=== PATIENT | male | born 1960 | race Caucasian/White ===

== ENCOUNTER 2019-03-03 11:16 | Inpatient (IN) | payer OTHER ==
[2019-03-03 12:32] LABS: Absolute Lymphocytes (CBC) 0.3 K/uL (0.7-4.9); Basophils % 0.7 % (0-1.3); Hematocrit 33.6 % (39.6-49.0); Lymphocytes % 29.5 % (15.3-44.8); MPV 10.1 fL (7.6-11.3); RBC Red Blood Cell Count 3.54 M/uL (4.33-5.43)
[2019-03-03 12:40] LABS: ALT/SGPT 104 U/L (12-78); AST/SGOT 68 U/L (15-37); Albumin 3.3 g/dL (3.4-5.0); Alkaline Phosphatase 52 U/L (45-117); BUN Blood Urea Nitrogen 15 mg/dL (7-18); Bicarbonate 32 mmol/L (21-32); Bilirubin Direct 0.2 mg/dL (0-0.2); Bilirubin Total 0.8 mg/dL (0.2-1.0); Glucose Level 94 mg/dL (74-106); Lipase 55 U/L (73-393); Potassium 4.4 mmol/L (3.5-5.1); Protein, Total 5.9 g/dL (6.4-8.2); Sodium Level 142 mmol/L (136-145)
[2019-03-03 12:52] LABS: Blood Morphology Comment NOT SEEN (NOT SEEN); Platelet Estimate DECR
--- NOTE | 2019-03-03 13:48 | RAD REPORT ---
EXAM DESCRIPTION: CT - Abdomen Pelvis W Contrast - 03/03/2019 1:11 pm CLINICAL HISTORY: ABD PAIN, right lower quadrant pain COMPARISON: None. TECHNIQUE: Biphasic, helical CT imaging of the abdomen and pelvis was performed following 100 ml non -ionic IV contrast. No oral contrast administered. All CT scans are performed using dose optimization technique as appropriate and may include automated exposure control or mA/KV adjustment according to patient size. FINDINGS: No suspicious findings in the lung bases. The liver, spleen, and pancreas show no suspicious findings. Small cyst present in the lateral inferi or right lobe of the liver. No biliary tree dilatation. No gallbladder dilatation. Gallstones can be occult on CT imaging. Renal function is slightly asymmetric appearing fractionally delayed on the right. An obstructing sto ne is not identified. Patient has known nonobstructing calculi. No ureteral or bladder mass as it is evident. Prostate gland and seminal vesicles are normal range. No pyelonephritis or acute parenchymal process. No bladder abnormalities. No adrenal abnormalities. No gastric dilatation or wall thickening. No dilated small bowel loops. A normal appendix is identifi able. Descending colon shows circumferential wall thickening. There is stranding in the adjacent fat. No free air or pneumatosis. No free fluid or abscess. Remainder the colon is without acute finding. No mass or bulky lymphadenopathy. Fat filled umbilical hernia present. Prominent bony degenerative changes are present. Postsurgical changes are present in the lower lumbar spine. IMPRESSION: Circumferential wall thickening of the ascending colon with adjacent inflammatory strand ing. Colitis and malignancy are both considerations. Typhlitis would be a consideration if the patien t has immune suppression issues. A normal appendix is identified. Slightly delayed or asymmetric function of the right kidney without obstructing calculus. An acute et iology for this asymmetry is not evident.
[2019-03-03] MEDS ORDERED: PIPER/TAZO/NS 3.375gm 3.375 GM/100 ML BAG ONE (14:07)
--- NOTE | 2019-03-03 14:22 | EDPHYS ---
Physician Documentation [facility] Name: Luciano Dias Age: 59 yrs Sex: Male : 1960 Arrival Date: 03/03/2019 Time: 11:19 Bed 25 Private MD: Jonatan Manjarrez ED Physician Antony Hart HPI: 03/03 12:08 This 59 yrs old Male presents to ER via Ambulatory with complaints of rn InQuicker - Appendicitis. 12:08 The patient presents with abdominal pain right lower quadrant. Onset: The rn symptoms/episode began/occurred 6 day(s) ago. The symptoms do not radiate. Associated signs and symptoms: Pertinent positives: anorexia, diarrhea, Pertinent negatives: fever, shortness of breath, testicular pain, vomiting, vomiting blood. The symptoms are described as crampy, sharp. Modifying factors: The symptoms are alleviated by nothing, the symptoms are aggravated by movement, touching the area. Severity of pain: At its worst the pain was moderate in the emergency department the pain is unchanged. The patient has not experienced similar symptoms in the past. The patient has been recently seen by a physician:. Reports recently seen by urgent care for blisters in mouth, given steroids, since then or for 5-6 days has been having intermittent RLQ pain, assoc with non-bloody diarrhea and decreased appetite. NOt getting worse but also not getting better. No fever. No trauma.. Historical: - Allergies: 11:58 No Known Allergies; aj1 - Home Meds: 11:58 Adderall XR Oral [Active]; Provigil oral oral [Active]; MS Contin Oral [Active]; Lyrica aj1 Oral [Active]; Flexeril Oral [Active]; - PMHx: 11:58 ADD/ADHD; aj1 - PSHx: 11:58 back surgery; Tonsillectomy; aj1 - Immunization history:: Flu vaccine is not up to date. - Social history:: Smoking status: Patient uses tobacco products, smokes one-half pack cigarettes per day. - Ebola Screening: : Patient denies travel to an Ebola-affected area in the 21 days before illness onset. - Family history:: not pertinent. - Hospitalizations: : No recent hospitalization is reported. ROS: 12:08 Constitutional: Negative for fever, chills, and weight loss, Eyes: Negative for injury, rn pain, redness, and discharge, Neck: Negative for injury, pain, and swelling, Cardiovascular: Negative for chest pain, palpitations, and edema, Respiratory: Negative for shortness of breath, cough, wheezing, and pleuritic chest pain, Abdomen/GI: Negative for nausea, vomiting, and constipation, Back: Negative for injury and pain, : Negative for injury, bleeding, discharge, and swelling, MS/Extremity: Negative for injury and deformity, Skin: Negative for injury, rash, and discoloration, Neuro: Negative for headache, weakness, numbness, tingling, and seizure. Exam: 12:08 Constitutional: This is a well developed, well nourished patient who is awake, alert, rn and in no acute distress. Ambulatory to room without difficulty or assistance. Head/Face: Normocephalic, atraumatic. Eyes: Pupils equal round and reactive to light, extra-ocular motions intact. Lids and lashes normal. Conjunctiva and sclera are non-icteric and not injected. Cornea within normal limits. Periorbital areas with no swelling, redness, or edema. Cardiovascular: Regular rate and rhythm. No pulse deficits. Respiratory: No increased work of breathing, no retractions or nasal flaring. Abdomen/GI: soft, mild RLQ tenderness, no rebound, no fluid wave. MS/ Extremity: Pulses equal, no cyanosis. Neurovascular intact. Full, normal range of motion. Equal circumference. Neuro: Awake and alert, GCS 15, oriented to person, place, time, and situation. Cranial nerves II-XII grossly intact. Motor strength 5/5 in all extremities. Sensory grossly intact. Cerebellar exam normal. Normal gait. Vital Signs: 11:58 BP 121 / 70; Pulse 71; Resp 18; Temp 97.7; Pulse Ox 98% on R/A; Weight 99.79 kg (R); aj1 Height 6 ft. 2 in. (187.96 cm) (R); Pain 7/10; 15:08 BP 108 / 72; Pulse 62; Resp 18; Pulse Ox 100% on R/A; mg2 16:20 BP 115 / 78; Pulse 68; Resp 18; Temp 98; Pulse Ox 100% on R/A; mg2 11:58 Body Mass Index 28.25 (99.79 kg, 187.96 cm) aj MDM: 12:00 Patient medically screened. rn 14:19 Differential diagnosis: appendicitis, diverticulitis, non-specific abd pain, rn pancreatitis, Ureterolithiasis, colitis, dehydration. Data reviewed: vital signs, nurses notes, lab test result(s), radiologic studies, CT scan, and as a result, I will admit patient. Counseling: I had a detailed discussion with the patient and/or guardian regarding: the historical points, exam findings, and any diagnostic results supporting the discharge/admit diagnosis, lab results, radiology results, the need for further work-up and treatment in the hospital. Response to treatment: the patient's symptoms have mildly improved after treatment, and as a result, I will admit patient. Admission orders: after a detailed discussion of the patient's condition and case, the admit orders are written by me. ED course: Pt with leukopenia/neutropenia as well as thrombocytopenia, in conjunction with colitis or possible typhlitis. Will admit for IV abx to Dr. He. Pt is receiving shots for arthritis that he just started, is not sure of name, is going to get us name of medication.. 03/03 12:06 Order name: Basic Metabolic Panel; Complete Time: 13:14 rn 03/03 12:06 Order name: CBC with Diff; Complete Time: 13:14 rn 03/03 12:06 Order name: Creatinine for Radiology; Complete Time: 13:14 rn 03/03 12:06 Order name: Hepatic Function; Complete Time: 13:14 rn 03/03 12:06 Order name: Lipase; Complete Time: 13:14 rn 03/03 12:06 Order name: Urine Microscopic Only rn 03/03 12:06 Order name: IV Saline Lock; Complete Time: 12:30 rn 03/03 12:06 Order name: Labs collected and sent; Complete Time: 12:30 rn 03/03 12:06 Order name: CT Abd/Pelvis - IV Contrast Only; Complete Time: 13:56 rn 03/03 12:06 Order name: Urine Dipstick-Ancillary (obtain specimen); Complete Time: 16:14 rn 03/03 12:52 Order name: Manual Differential; Complete Time: 13:14 EDMS 03/03 15:53 Order name: Urine Dipstick--Ancillary (enter results) 03/03 16:25 Order name: Urine Dipstick-Ancillary EDMS Administered Medications: 14:16 Drug: Zosyn 3.375 grams Route: IVPB; Infused Over: 60 mins; Site: right forearm; mg2 16:08 Follow up: Response: No adverse reaction; IV Status: Completed infusion mg2 Disposition: 03/03/19 14:21 Hospitalization ordered by Mandy He for Inpatient Admission. Preliminary diagnosis are Colitis, Neutropenia, unspecified, Thrombocytopenia, unspecified. - Bed requested for Telemetry/MedSurg (Inpatient). - Status is Inpatient Admission. mg2 - Condition is Stable. - Problem is new. - Symptoms have improved. UTI on Admission? No Signatures: Dispatcher [employer] EDMS Xochitl Shaikh RN RN aj1 Antony Hart MD MD rn Aguilar, Jose, RN RN ja1 Will Bean RN RN mg2 Corrections: (The following items were deleted from the chart) 15:29 14:21 Hospitalization Ordered by Mandy He MD for Inpatient Admission. Preliminary ja1 diagnosis is Colitis; Neutropenia, unspecified; Thrombocytopenia, unspecified. Bed requested for Telemetry/MedSurg (Inpatient). Status is Inpatient Admission. Condition is Stable. Problem is new. Symptoms have improved. UTI on Admission? No. rn 16:27 15:29 03/03/2019 14:21 Hospitalization Ordered by Mandy He MD for Inpatient mg2 Admission. Preliminary diagnosis is Colitis; Neutropenia, unspecified; Thrombocytopenia, unspecified. Bed requested for Telemetry/MedSurg (Inpatient). Status is Inpatient Admission. Condition is Stable. Problem is new. Symptoms have improved. UTI on Admission? No. ja1
--- NOTE | 2019-03-03 14:22 | ER ---
Nurse's Notes [facility] Name: Luciano Dias Age: 59 yrs Sex: Male : 1960 Arrival Date: 03/03/2019 Time: 11:19 Bed 25 Private MD: Jonatan Manjarrez Diagnosis: Colitis;Neutropenia, unspecified;Thrombocytopenia, unspecified Presentation: 03/03 11:54 Presenting complaint: Patient states: RLQ abdominal pain since Monday, reports that aj1 his pain is worse when he bends over. Patient also reports poor appetite and diarrhea. Reports nausea, denies vomiting, denies fever. Transition of care: patient was not received from another setting of care. Onset of symptoms was 2018. Risk Assessment: Do you want to hurt yourself or someone else? Patient reports no desire to harm self or others. Initial Sepsis Screen: Does the patient meet any 2 criteria? No. Patient's initial sepsis screen is negative. Does the patient have a suspected source of infection? Yes: Acute abdominal pain. Care prior to arrival: None. 11:54 Method Of Arrival: Ambulatory aj 11:54 Acuity: YANELIS 3 aj1 Triage Assessment: 11:58 General: Appears in no apparent distress. uncomfortable, Behavior is calm, cooperative, aj1 appropriate for age. Pain: Complains of pain in right lower quadrant Pain currently is 7 out of 10 on a pain scale. Neuro: Level of Consciousness is awake, alert, obeys commands. Cardiovascular: Patient's skin is warm and dry. Respiratory: Airway is patent Respiratory effort is even, unlabored, Respiratory pattern is regular, symmetrical. GI: Reports lower abdominal pain. Historical: - Allergies: 11:58 No Known Allergies; aj1 - Home Meds: 11:58 Adderall XR Oral [Active]; Provigil oral oral [Active]; MS Contin Oral [Active]; Lyrica aj1 Oral [Active]; Flexeril Oral [Active]; - PMHx: 11:58 ADD/ADHD; aj1 - PSHx: 11:58 back surgery; Tonsillectomy; aj1 - Immunization history:: Flu vaccine is not up to date. - Social history:: Smoking status: Patient uses tobacco products, smokes one-half pack cigarettes per day. - Ebola Screening: : Patient denies travel to an Ebola-affected area in the 21 days before illness onset. - Family history:: not pertinent. - Hospitalizations: : No recent hospitalization is reported. Screenin:03 Abuse screen: Denies threats or abuse. Denies injuries from another. Nutritional mg2 screening: No deficits noted. Tuberculosis screening: No symptoms or risk factors identified. 12:06 Fall Risk None identified. mg2 Assessment: 12:04 General: Appears in no apparent distress. comfortable, Behavior is calm, cooperative. mg2 Pain: Complains of pain in right lower quadrant Pain does not radiate. Quality of pain is described as aching, Pain began gradually, since monday Is intermittent. Neuro: Level of Consciousness is awake, alert, obeys commands, Oriented to person, place, time, situation. Cardiovascular: Capillary refill < 3 seconds Patient's skin is warm and dry. Respiratory: Airway is patent Respiratory effort is even, unlabored, Respiratory pattern is regular, symmetrical. GI: Reports lower abdominal pain, nausea. EENT: No signs and/or symptoms were reported regarding the EENT system. Derm: Skin is intact, is healthy with good turgor, Skin is pink, warm \T\ dry. normal. Musculoskeletal: Circulation, motion, and sensation intact. Capillary refill < 3 seconds. 13:05 Reassessment: patient sent to ct scan via wheelchair. mg2 14:30 Reassessment: provider informed the patient about the plan for hospitalization and he mg2 agreed. 15:48 Reassessment: i tried to call for report and said they will call back to receive the mg2 report. Vital Signs: 11:58 BP 121 / 70; Pulse 71; Resp 18; Temp 97.7; Pulse Ox 98% on R/A; Weight 99.79 kg (R); aj1 Height 6 ft. 2 in. (187.96 cm) (R); Pain 7/10; 15:08 BP 108 / 72; Pulse 62; Resp 18; Pulse Ox 100% on R/A; mg2 16:20 BP 115 / 78; Pulse 68; Resp 18; Temp 98; Pulse Ox 100% on R/A; mg2 11:58 Body Mass Index 28.25 (99.79 kg, 187.96 cm) aj1 ED Course: 11:19 Patient arrived in ED. ag5 11:20 Jonatan Manjarrez MD is Private Physician. ag5 11:56 Triage completed. aj1 11:58 Arm band placed on Patient placed in an exam room. aj1 12:00 Antony Hart MD is Attending Physician. rn 12:01 Will Bean, FILI is Primary Nurse. mg2 12:06 Patient has correct armband on for positive identification. mg2 12:10 Radiology exam delayed due to lab results not completed at this time. (BUN/Creatinine). mw3 13:05 No provider procedures requiring assistance completed. Inserted saline lock: 20 gauge mg2 in right forearm, using aseptic technique. Blood collected. 13:10 CT completed. Patient tolerated procedure well. Patient moved back from CT. bq 13:11 CT Abd/Pelvis - IV Contrast Only In Process Unspecified. EDMS 14:20 Mandy He MD is Hospitalizing Provider. rn 16:20 Patient admitted, IV remains in place. mg2 Administered Medications: 14:16 Drug: Zosyn 3.375 grams Route: IVPB; Infused Over: 60 mins; Site: right forearm; mg2 16:08 Follow up: Response: No adverse reaction; IV Status: Completed infusion mg2 Outcome: 14:21 Decision to Hospitalize by Provider. rn 16:20 Admitted to Tele accompanied by tech, via wheelchair, room 422, with chart, Report mg2 called to FILI Marshall 16:20 Condition: stable 16:20 Instructed on the need for admit, Demonstrated understanding of instructions. 16:27 Patient left the ED. mg2 Signatures: Dispatcher [employer] EDMS Xochitl Shaikh RN RN aj1 Sheree Zuñiga bq Antony Hart MD MD rn Gardose, Michele, FILI PENN mg2 Marci Dennis mw3 Sol Martinez 5
[2019-03-03 16:24] LABS: Urine Bacteria <20 /HPF (NONE SEEN); Urine Culture Reflex Order REFLEXED; Urine RBC NONE SEEN /HPF (NONE SEEN)
[2019-03-03 16:25] LABS: Urine Blood TRACE (NEG); Urine Glucose NEGATIVE (NEG); Urine Protein NEGATIVE (NEG); Urine pH 5.5 (5.0-7.0)
[2019-03-03 16:36] VITALS: BMI 28.2
[2019-03-03] MEDS: NA CHLORIDE 0.9% 1,000 ML IV SCH (16:53)
--- NOTE | 2019-03-03 18:01 | P.HP ---
Certification for Inpatient Patient admitted to: Inpatient With expected LOS: >2 Midnights Practitioner: I am a practitioner with admitting privileges, knowledge of patient current condition, hospital course, and medical plan of care. Services: Services provided to patient in accordance with Admission requirements found in Title 42 Section 412.3 of the Code of Federal Regulations Patient History Date of Service: 03/03/19 Primary Care Provider: Dr. Manjarrez (we are covering) Reason for admission: Right lower quadrant abdominal pain History of Present Illness: This is a 59-year-old male who has been fairly healthy presented to the emergency room with complaints of right sided, lower quadrant abdominal pain. Per patient, he has had this right lower quadrant pain for the past 5 or 6 days. ADD improve slightly but since 5-6 days that has remained at the level at. He describes it as a dull achy pain which is worsened with bending and increasing abdominal pressure. He associates this pain with non-bloody diarrhea and nausea. Patient states that he has not had a bowel movement today though. He denies any fevers, chills, vomiting, recent travels, eating anything out of the ordinary, recent sick contacts. Of note, patient has recently seen a assistant shift supervisor who started him on a new medication for his arthritis. He was started on Sarilumab recently. Since the pain was not getting any better, he presented to the emergency room. In the ER, blood pressure was 121/70, heart rate is 71, respirations of 18, afebrile at 97.9, satting 90% on room air with a BMI of 20.25. Labs were remarkable for a WBC count of 1, platelets of 71. CT of the abdomen showed Circumferential wall thickening of the ascending colon with adjacent inflammatory stranding. Colitis and malignancy are both considerations. Typhlitis would be a consideration if the patient has immune suppression issues. A normal appendix is identified. At the time of my exam, patient was alert oriented x3, in no acute distress, hemodynamically stable. Allergies No Known Allergies Allergy (Verified 03/03/19 15:41) Home medications list reviewed: Yes Home Medications: Hydroxychloroquine [Plaquenil*] 1 tab PO BID 03/03/19 Methocarbamol [Robaxin*] 1 tab PO TID 03/03/19 Morphine *Extended Release* [MS Contin*] 30 mg PO TID 03/03/19 Pregabalin [Lyrica*] 1 tab PO TID 03/03/19 - Past Medical/Surgical History Has patient received pneumonia vaccine in the past: No Diabetic: No -: back problem -: back discectomy, laminectomy, effusion - Family History Father -: Lung disease Notes: copd - Social History Smoking Status: Current every day smoker Alcohol use: No CD- Drugs: No Caffeine use: Yes Place of Residence: Home Review of Systems 10-point ROS is otherwise unremarkable Physical Examination - Vital Signs Temperature: 98 F Blood Pressure: 115/78 Pulse: 68 Respirations: 18 - Physical Exam General: Alert, In no apparent distress, Oriented x3 HEENT: Atraumatic, PERRLA, Mucous membr. moist/pink, EOMI, Sclerae nonicteric Neck: Supple, 2+ carotid pulse no bruit, No LAD, Without JVD or thyroid abnormality Respiratory: Clear to auscultation bilaterally, Normal air movement Cardiovascular: Regular rate/rhythm, Normal S1 S2 Gastrointestinal: Normal bowel sounds, No tenderness Musculoskeletal: No tenderness Integumentary: No rashes Neurological: Normal gait, Normal speech, Normal strength at 5/5 x4 extr, Normal tone, Normal affect Lymphatics: No axilla or inguinal lymphadenopathy - Studies Laboratory Data (last 24 hrs) 03/03/19 12:15: Creatinine 0.82 03/03/19 12:15: WBC 1.0 L*, Hgb 11.9 L, Hct 33.6 L, Plt Count 71 L 03/03/19 12:15: Sodium 142, Potassium 4.4, BUN 15, Creatinine 0.85, Glucose 94, Total Bilirubin 0.8, AST 68 H, ALT 104 H, Alkaline Phosphatase 52, Lipase 55 L Assessment and Plan - Problems (Diagnosis) (1) Right lower quadrant abdominal pain Current Visit: Yes Status: Acute (2) Abnormal abdominal CT scan Current Visit: Yes Status: Acute (3) Neutropenia Current Visit: Yes Status: Acute Qualifiers: Neutropenia type: other drug-induced Qualified Code(s): D70.2 - Other drug- induced agranulocytosis (4) Thrombocytopenia Current Visit: Yes Status: Acute - Plan -Admit patient to the floor with tele -reverse isolation for neutropenia -neutropenia and thrombocytopenia likely secondary to Sarilumab -abnormal CT findings of colonic wall thickening, typhilitis, colitis versus malignancy: This is likely secondary to colitis, probably from Sarilumab. -Differential diagnosis for above symptoms: C. diff (less likely, as no diarrhea today), Norovirus, ischemic colitis(less likely, as no other risk factors other than smoking), [place]'s -send stool sample for C. diff testing and GI panel -will cover patient for cough colitis/typhlitis with broad-spectrum antibiotics with Zosyn. -bowel rest, NPO -IV fluids -monitor labs, vitals Signs -patient will likely need colonoscopy outpatient in 4-6 weeks DVT prophylaxis: Lovenox GI prophylaxis: None Diet: NPO Disposition: Pending symptomatic improvement and further workup. - Advance Directives Does patient have a Living Will: No Does patient have a Durable POA for Healthcare: No
[2019-03-03] MEDS: TRAMADOL HCL 50 MG TAB PO PRN (20:12)
[2019-03-03] MEDS: MORPHINE 2 MG/ML SYR IV PRN (22:10)
[2019-03-03] MEDS: LORAZEPAM 1 MG TABLET PO SCH (23:14)
[2019-03-04 04:24] LABS: Absolute Lymphocytes (CBC) 0.3 K/uL (0.7-4.9); Basophils % 0.8 % (0-1.3); Hematocrit 28.1 % (39.6-49.0); Lymphocytes % 34.1 % (15.3-44.8); MPV 9.7 fL (7.6-11.3); RBC Red Blood Cell Count 2.98 M/uL (4.33-5.43)
[2019-03-04] MEDS: MORPHINE 2 MG/ML SYR IV PRN ×3 (04:25→18:08)
[2019-03-04] MEDS: ONDANSETRON 4 MG/2 ML VIAL IV PRN ×2 (04:25→21:07)
[2019-03-04 04:37] LABS: ALT/SGPT 103 U/L (12-78); AST/SGOT 69 U/L (15-37); Albumin 2.8 g/dL (3.4-5.0); Alkaline Phosphatase 42 U/L (45-117); BUN Blood Urea Nitrogen 16 mg/dL (7-18); Bicarbonate 30 mmol/L (21-32); Bilirubin Total 0.8 mg/dL (0.2-1.0); Glucose Level 86 mg/dL (74-106); Magnesium 1.6 mg/dL (1.8-2.4); Phosphorus 2.6 mg/dL (2.5-4.9); Potassium 3.8 mmol/L (3.5-5.1); Protein, Total 4.9 g/dL (6.4-8.2); Sodium Level 143 mmol/L (136-145)
[2019-03-04] MEDS ORDERED: KCL 20 MEQ/100 mL IVPB 20 MEQ/100 ML BAG IV SCH (08:00)
[2019-03-04] MEDS: TRAMADOL HCL 50 MG TAB PO PRN ×2 (08:50→21:07)
[2019-03-04] MEDS: LORAZEPAM 1 MG TABLET PO SCH ×3 (08:52→23:40)
[2019-03-04] MEDS ORDERED: MAGNESIUM SULFATE 1 gm IVPB 1 GM/100 ML BAG IV ONE (09:00)
[2019-03-04] MEDS: NA CHLORIDE 0.9% 1,000 ML IV SCH (17:06)
--- NOTE | 2019-03-04 18:36 | P.PN ---
Subjective Date of Service: 03/04/19 Primary Care Provider: Dr. Manjarrez (we are covering) Chief Complaint: Right lower quadrant abdominal pain Subjective: No new changes Patient seen and examined at bedside. No family at bedside. Chart reviewed and case discussed with nursing staff. Review of Systems 10-point ROS is otherwise unremarkable Physical Examination - Vital Signs Temperature: 98.6 F Blood Pressure: 118/64 Pulse: 79 Respirations: 16 Pulse Ox (%): 97 - Physical Exam General: Alert, In no apparent distress HEENT: Atraumatic, PERRLA, EOMI Neck: Supple, JVD not distended Respiratory: Clear to auscultation bilaterally, Normal air movement Cardiovascular: Regular rate/rhythm, Normal S1 S2 Gastrointestinal: Normal bowel sounds, No tenderness Musculoskeletal: No tenderness Integumentary: No rashes Neurological: Normal speech, Normal tone, Normal affect Lymphatics: No axilla or inguinal lymphadenopathy Assessment And Plan - Current Problems (Diagnosis) (1) Right lower quadrant abdominal pain Current Visit: Yes Status: Acute (2) Abnormal abdominal CT scan Current Visit: Yes Status: Acute (3) Neutropenia Current Visit: Yes Status: Acute Qualifiers: Neutropenia type: other drug-induced Qualified Code(s): D70.2 - Other drug- induced agranulocytosis (4) Thrombocytopenia Current Visit: Yes Status: Acute - Plan -Admit patient to the floor with tele -continue reverse isolation for neutropenia -neutropenia and thrombocytopenia likely secondary to Sarilumab -abnormal CT findings of colonic wall thickening, typhilitis, colitis versus malignancy: This is likely secondary to colitis, probably from Sarilumab. -Differential diagnosis for above symptoms: C. diff (less likely, as no diarrhea today), Norovirus, ischemic colitis(less likely, as no other risk factors other than smoking), [place]'s -C. diff testing and GI panel pending -will cover patient for colitis/typhlitis with broad-spectrum antibiotics with cefepime and Flagyl -prophylactic treatment for C. diff with Flagyl -bowel rest, NPO -IV fluids -monitor labs, vitals Signs -patient will likely need colonoscopy outpatient in 4-6 weeks -if neutropenia continues to worsen, will discuss case with Oncology DVT prophylaxis: Lovenox GI prophylaxis: None Diet: NPO Disposition: Pending symptomatic improvement and further workup.
[2019-03-04] MEDS: PREGABALIN 75 MG CAP PO SCH (20:47)
[2019-03-04] MEDS: CEFEPIME/SWI 2gm 2 GM/20 ML SYR IV SCH (20:47)
[2019-03-04] MEDS: TEMAZEPAM 15 MG CAP PO SCH (20:48)
[2019-03-04] MEDS: [UNRECOGNIZED DRUG - OTHER] PO SCH (21:00)
[2019-03-04] MEDS: DEXTROAMPHETAMINE PO SCH (21:00)
[2019-03-04] MEDS ORDERED: CEFEPIME 2 GM VIAL IV SCH (21:00)
[2019-03-04] MEDS: AMPHETAMINE PO SCH (21:00)
[2019-03-04] MEDS: ARIPiprazole 5 MG TAB PO SCH (21:07)
[2019-03-05] MEDS: METRONIDAZOLE 500mg IVPB 500 MG/100 ML BAG IV SCH ×3 (01:44→16:51)
[2019-03-05] MEDS: ONDANSETRON 4 MG/2 ML VIAL IV PRN (01:46)
[2019-03-05] MEDS: MORPHINE 2 MG/ML SYR IV PRN ×3 (01:46→16:54)
[2019-03-05 04:34] LABS: Absolute Lymphocytes (CBC) 0.6 K/uL (0.7-4.9); Basophils % 1.5 % (0-1.3); Hematocrit 27.7 % (39.6-49.0); Lymphocytes % 48.2 % (15.3-44.8); MPV 9.6 fL (7.6-11.3); RBC Red Blood Cell Count 2.95 M/uL (4.33-5.43)
[2019-03-05 04:44] LABS: ALT/SGPT 102 U/L (12-78); AST/SGOT 62 U/L (15-37); Albumin 2.7 g/dL (3.4-5.0); Alkaline Phosphatase 40 U/L (45-117); BUN Blood Urea Nitrogen 15 mg/dL (7-18); Bicarbonate 29 mmol/L (21-32); Bilirubin Total 0.6 mg/dL (0.2-1.0); Glucose Level 78 mg/dL (74-106); Potassium 3.8 mmol/L (3.5-5.1); Protein, Total 4.8 g/dL (6.4-8.2); Sodium Level 144 mmol/L (136-145)
[2019-03-05 05:23] LABS: Magnesium 1.5 mg/dL (1.8-2.4)
[2019-03-05] MEDS ORDERED: MAGNESIUM SULFATE 1 gm IVPB 1 GM/100 ML BAG IV ONE (06:00)
[2019-03-05] MEDS ORDERED: KCL 20 MEQ/100 mL IVPB 20 MEQ/100 ML BAG IV SCH (06:00)
[2019-03-05] MEDS ORDERED: Magnesium Sulfate 2gm IVPB 2 G/50 ML BAG IV ONE (06:00)
[2019-03-05] MEDS: PREGABALIN 75 MG CAP PO SCH ×3 (08:53→21:43)
[2019-03-05] MEDS: LORAZEPAM 1 MG TABLET PO SCH ×3 (08:53→21:44)
[2019-03-05] MEDS: DULOXETINE 30 MG CAP PO SCH (08:53)
[2019-03-05] MEDS: [UNRECOGNIZED DRUG - OTHER] PO SCH ×2 (09:00→21:00)
[2019-03-05] MEDS: AMPHETAMINE PO SCH ×2 (09:00→21:00)
[2019-03-05] MEDS: DEXTROAMPHETAMINE PO SCH ×2 (09:00→21:00)
[2019-03-05] MEDS ORDERED: HOME MED 1 EA UNK (Duloxetine Hcl [Cymbalta] 1 TAB) PO SCH (09:00)
[2019-03-05] MEDS: CEFEPIME/SWI 2gm 2 GM/20 ML SYR IV SCH ×2 (10:38→21:43)
[2019-03-05] MEDS: ARIPiprazole 5 MG TAB PO SCH (12:40)
[2019-03-05 13:05] LABS: C.diff Antigen/Toxin Ag neg : Tox neg (NEG : NEG)
[2019-03-05] MEDS: TRAMADOL HCL 50 MG TAB PO PRN (13:09)
[2019-03-05] MEDS: NA CHLORIDE 0.9% 1,000 ML IV SCH (13:19)
--- NOTE | 2019-03-05 15:34 | P.PN ---
Subjective Date of Service: 03/05/19 Primary Care Provider: Dr. Manjarrez (we are covering) Chief Complaint: Right lower quadrant abdominal pain Subjective: Improving Patient seen and examined at bedside. No family at bedside. Chart reviewed and case discussed with nursing staff. No complaints this morning Review of Systems 10-point ROS is otherwise unremarkable Physical Examination - Vital Signs Temperature: 99.1 F Blood Pressure: 111/58 Pulse: 64 Respirations: 16 Pulse Ox (%): 97 - Physical Exam General: Alert, In no apparent distress, Oriented x3, Other (Week) HEENT: Atraumatic, PERRLA, EOMI Neck: Supple, JVD not distended Respiratory: Clear to auscultation bilaterally, Normal air movement Cardiovascular: Regular rate/rhythm, Normal S1 S2 Gastrointestinal: Normal bowel sounds, No tenderness Musculoskeletal: No tenderness Integumentary: No rashes Neurological: Normal speech, Normal tone, Normal affect Lymphatics: No axilla or inguinal lymphadenopathy - Studies Microbiology Data (last 24 hrs): 03/03/19 14:50 Clean Catch Urine [place] Count - Final 03/03/19 14:50 Clean Catch Urine - Final No growth. 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 -Differential diagnosis for above symptoms: Neutropenic enterocolitis, C. diff (less likely, as no diarrhea today), Norovirus, ischemic colitis(less likely, as no other risk factors other than smoking), [place]'s -C. diff negative -will cover patient for colitis/typhlitis with broad-spectrum antibiotics with cefepime and Flagyl -start clear liquid diet -IV fluids -will Dc once tolerating p.o. -monitor labs, vitals Signs -patient will likely need colonoscopy outpatient in 4-6 weeks -if neutropenia continues to worsen, will discuss case with Oncology DVT prophylaxis: Lovenox GI prophylaxis: None Diet: Clear liquid diet Disposition: Pending symptomatic improvement
[2019-03-05] MEDS: TEMAZEPAM 15 MG CAP PO SCH (21:44)
[2019-03-05] MEDS: ENSURE CLEAR 200 ML CAN PO SCH (21:44)
[2019-03-05] MEDS: NYSTATIN 500,000 UNIT/5 ML UDC PO SCH (21:44)
[2019-03-05] MEDS ORDERED: ACETAMINOPHEN 325 MG TABLET ONE (21:47)
[2019-03-05] MEDS: ACETAMINOPHEN 500 MG TAB PO PRN (21:49)
[2019-03-06] MEDS: METRONIDAZOLE 500mg IVPB 500 MG/100 ML BAG IV SCH ×2 (00:03→08:52)
[2019-03-06] MEDS: NA CHLORIDE 0.9% 1,000 ML IV SCH ×5 (00:03→21:52)
[2019-03-06 04:43] LABS: Absolute Lymphocytes (CBC) 0.5 K/uL (0.7-4.9); Basophils % 1.8 % (0-1.3); Hematocrit 28.8 % (39.6-49.0); Lymphocytes % 42.9 % (15.3-44.8); MPV 9.9 fL (7.6-11.3); RBC Red Blood Cell Count 3.03 M/uL (4.33-5.43)
[2019-03-06 05:09] LABS: ALT/SGPT 112 U/L (12-78); AST/SGOT 57 U/L (15-37); Albumin 2.7 g/dL (3.4-5.0); Alkaline Phosphatase 41 U/L (45-117); BUN Blood Urea Nitrogen 10 mg/dL (7-18); Bicarbonate 29 mmol/L (21-32); Bilirubin Total 0.6 mg/dL (0.2-1.0); Glucose Level 90 mg/dL (74-106); Magnesium 1.9 mg/dL (1.8-2.4); Potassium 3.5 mmol/L (3.5-5.1); Protein, Total 4.9 g/dL (6.4-8.2); Sodium Level 144 mmol/L (136-145)
[2019-03-06] MEDS ORDERED: POTASSIUM 25 MEQ EFFERV TAB PO ONE (07:29)
[2019-03-06] MEDS: PREGABALIN 75 MG CAP PO SCH ×2 (08:53→14:00)
[2019-03-06] MEDS: NYSTATIN 500,000 UNIT/5 ML UDC PO SCH ×2 (08:53→21:50)
[2019-03-06] MEDS: LORAZEPAM 1 MG TABLET PO SCH ×3 (08:54→21:50)
[2019-03-06] MEDS: ARIPiprazole 5 MG TAB PO SCH (08:54)
[2019-03-06] MEDS: DULOXETINE 30 MG CAP PO SCH (08:54)
[2019-03-06] MEDS: AMPHETAMINE PO SCH ×2 (08:55→21:00)
[2019-03-06] MEDS: DEXTROAMPHETAMINE PO SCH ×2 (08:55→21:00)
[2019-03-06] MEDS: [UNRECOGNIZED DRUG - OTHER] PO SCH ×2 (08:55→21:00)
[2019-03-06] MEDS: ENSURE CLEAR 200 ML CAN PO SCH ×2 (08:56→21:51)
[2019-03-06] MEDS: MORPHINE 2 MG/ML SYR IV PRN (09:00)
[2019-03-06] MEDS: CEFEPIME/SWI 2gm 2 GM/20 ML SYR IV SCH (10:05)
[2019-03-06] MEDS: PREGABALIN 150 MG CAP PO SCH (15:33)
--- NOTE | 2019-03-06 16:35 | P.PN ---
Subjective Date of Service: 03/06/19 Primary Care Provider: Dr. Manjarrez (we are covering) Chief Complaint: Right lower quadrant abdominal pain Subjective: Improving Patient seen and examined at bedside. No family at bedside. Chart reviewed and case discussed with nursing staff. No complaints this morning Diarrhea improved Review of Systems 10-point ROS is otherwise unremarkable Physical Examination - Vital Signs Temperature: 98.4 F Blood Pressure: 119/80 Pulse: 63 Respirations: 16 Pulse Ox (%): 98 - Physical Exam General: Alert, In no apparent distress, Oriented x3, Other (Elderly) HEENT: Atraumatic, PERRLA, EOMI Neck: Supple, JVD not distended Respiratory: Clear to auscultation bilaterally, Normal air movement Cardiovascular: Regular rate/rhythm, Normal S1 S2 Gastrointestinal: Normal bowel sounds, No tenderness Musculoskeletal: No tenderness Integumentary: No rashes Neurological: Normal speech, Normal tone, Normal affect Lymphatics: No axilla or inguinal lymphadenopathy Assessment And Plan - Current Problems (Diagnosis) (1) Right lower quadrant abdominal pain Current Visit: Yes Status: Acute (2) Abnormal abdominal CT scan Current Visit: Yes Status: Acute (3) Neutropenia Current Visit: Yes Status: Acute Qualifiers: Neutropenia type: other drug-induced Qualified Code(s): 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 -Differential diagnosis for above symptoms: Neutropenic enterocolitis, C. diff (less likely, as no diarrhea today), Norovirus, ischemic colitis(less likely, as no other risk factors other than smoking), [place]'s -C. diff negative -will cover patient for colitis/typhlitis with broad-spectrum antibiotics with cefepime and Flagyl -start clear liquid diet -IV fluids -will Dc once tolerating p.o. -monitor labs, vitals Signs -patient will likely need colonoscopy outpatient in 4-6 weeks -if neutropenia continues to worsen, will discuss case with Oncology DVT prophylaxis: Lovenox GI prophylaxis: None Diet: Clear liquid diet Disposition: Pending symptomatic improvement
[2019-03-06] MEDS: PIPER/TAZO/NS 3.375gm 3.375 GM/100 ML BAG IV SCH (17:00)
[2019-03-06] MEDS: TEMAZEPAM 15 MG CAP PO SCH (21:50)
[2019-03-06] MEDS: TRAMADOL HCL 50 MG TAB PO PRN (21:50)
[2019-03-07] MEDS: NA CHLORIDE 0.9% 1,000 ML IV SCH ×3 (00:23→16:07)
[2019-03-07] MEDS: PIPER/TAZO/NS 3.375gm 3.375 GM/100 ML BAG IV SCH ×3 (00:50→16:07)
[2019-03-07] MEDS: ACETAMINOPHEN 500 MG TAB PO PRN (02:45)
[2019-03-07] MEDS: TRAMADOL HCL 50 MG TAB PO PRN ×2 (05:40→21:05)
[2019-03-07 06:10] LABS: BUN Blood Urea Nitrogen 7 mg/dL (7-18); Bicarbonate 27 mmol/L (21-32); Glucose Level 88 mg/dL (74-106); Potassium 3.4 mmol/L (3.5-5.1); Sodium Level 146 mmol/L (136-145)
[2019-03-07] MEDS: DULOXETINE 30 MG CAP PO SCH (08:52)
[2019-03-07] MEDS: ARIPiprazole 5 MG TAB PO SCH (08:53)
[2019-03-07] MEDS: LORAZEPAM 1 MG TABLET PO SCH ×2 (08:54→13:40)
[2019-03-07] MEDS: PREGABALIN 150 MG CAP PO SCH ×3 (08:54→21:04)
[2019-03-07] MEDS: NYSTATIN 500,000 UNIT/5 ML UDC PO SCH ×2 (08:54→21:05)
[2019-03-07] MEDS: ENSURE CLEAR 200 ML CAN PO SCH ×2 (08:55→21:04)
[2019-03-07] MEDS: AMPHETAMINE PO SCH ×2 (08:57→21:00)
[2019-03-07] MEDS: DEXTROAMPHETAMINE PO SCH ×2 (08:57→21:00)
[2019-03-07] MEDS: [UNRECOGNIZED DRUG - OTHER] PO SCH ×2 (08:57→21:00)
[2019-03-07] MEDS ORDERED: POTASSIUM CL SA 10 MEQ TAB PO ONE (09:00)
[2019-03-07 11:08] LABS: Absolute Lymphocytes (CBC) 0.3 K/uL (0.7-4.9); Basophils % 0.9 % (0-1.3); Hematocrit 31.1 % (39.6-49.0); Lymphocytes % 23.9 % (15.3-44.8); MPV 9.8 fL (7.6-11.3); RBC Red Blood Cell Count 3.25 M/uL (4.33-5.43)
[2019-03-07 14:48] LABS: Platelet Estimate DECR; Platelets, Giant FEW PRESENT
[2019-03-07 14:49] LABS: Anisocytosis 1+; Blood Morphology Comment NOTED (NOT SEEN)
[2019-03-07] MEDS ORDERED: LORAZEPAM 1 MG TABLET PO PRN (15:39)
--- NOTE | 2019-03-07 15:56 | P.PN ---
Subjective Date of Service: 03/07/19 Primary Care Provider: Dr. Manjarrez (we are covering) Chief Complaint: Right lower quadrant abdominal pain Subjective: Improving Patient seen and examined at bedside. No family at bedside. Chart reviewed and case discussed with nursing staff. Case discussed with Dr. Soto No complaints this morning Diarrhea improved, more formed Review of Systems 10-point ROS is otherwise unremarkable Physical Examination - Vital Signs Temperature: 98.3 F Blood Pressure: 105/59 Pulse: 71 Respirations: 16 Pulse Ox (%): 99 - Physical Exam General: Alert, In no apparent distress HEENT: Atraumatic, PERRLA, EOMI Neck: Supple, JVD not distended Respiratory: Clear to auscultation bilaterally, Normal air movement Cardiovascular: Regular rate/rhythm, Normal S1 S2 Gastrointestinal: Normal bowel sounds, No tenderness Musculoskeletal: No tenderness Integumentary: No rashes Neurological: Normal speech, Normal tone, Normal affect Lymphatics: No axilla or inguinal lymphadenopathy Assessment And Plan - Current Problems (Diagnosis) (1) Right lower quadrant abdominal pain Current Visit: Yes Status: Acute (2) Abnormal abdominal CT scan Current Visit: Yes Status: Acute (3) Neutropenia Current Visit: Yes Status: Acute Qualifiers: Neutropenia type: other drug-induced Qualified Code(s): D70.2 - Other drug- induced agranulocytosis (4) Thrombocytopenia Current Visit: Yes Status: Acute - Plan -continue reverse isolation for neutropenia -neutropenia and thrombocytopenia likely secondary to Sarilumab, improving. -abnormal CT findings of colonic wall thickening, typhilitis, colitis versus malignancy: This is likely secondary to colitis, probably from Sarilumab. -Differential diagnosis for above symptoms: Neutropenic enterocolitis, C. diff (less likely, as no diarrhea today), Norovirus, ischemic colitis(less likely, as no other risk factors other than smoking), [place]'s -C. diff negative -will cover patient for colitis/typhlitis with broad-spectrum antibiotics with cefepime and Flagyl -Tolerating GI soft diet -monitor labs, vitals Signs -patient will likely need colonoscopy outpatient in 4-6 weeks -Discussed case with Dr. Soto - bone marrow suppression likely secondary to medications (Sarilumab, plaquenil and methotrexate). Will hold these medications till patient follow up with his [facility]. DVT prophylaxis: Lovenox GI prophylaxis: None Diet: Clear liquid diet Disposition: Pending symptomatic improvement. Anticipate discharge in the next 24 hrs.
[2019-03-07 16:44] LABS: BUN Blood Urea Nitrogen 7 mg/dL (7-18); Bicarbonate 27 mmol/L (21-32); Glucose Level 95 mg/dL (74-106); Potassium 3.6 mmol/L (3.5-5.1); Sodium Level 146 mmol/L (136-145)
[2019-03-07] MEDS ORDERED: ARIPiprazole 5 MG TAB PO SCH (21:00)
[2019-03-07] MEDS: TEMAZEPAM 15 MG CAP PO SCH (21:05)
[2019-03-08] MEDS: PIPER/TAZO/NS 3.375gm 3.375 GM/100 ML BAG IV SCH ×2 (00:23→09:54)
[2019-03-08] MEDS: ACETAMINOPHEN 500 MG TAB PO PRN (04:16)
[2019-03-08 06:00] LABS: Absolute Lymphocytes (CBC) 0.8 K/uL (0.7-4.9); Basophils % 0.7 % (0-1.3); Hematocrit 29.6 % (39.6-49.0); Lymphocytes % 29.5 % (15.3-44.8); MPV 9.6 fL (7.6-11.3); RBC Red Blood Cell Count 3.05 M/uL (4.33-5.43)
[2019-03-08 08:03] LABS: BUN Blood Urea Nitrogen 8 mg/dL (7-18); Bicarbonate 28 mmol/L (21-32); Glucose Level 83 mg/dL (74-106); Potassium 3.4 mmol/L (3.5-5.1); Sodium Level 144 mmol/L (136-145)
[2019-03-08 08:21] VITALS: O2SAT 96
[2019-03-08] MEDS: DEXTROAMPHETAMINE PO SCH (09:00)
[2019-03-08] MEDS: [UNRECOGNIZED DRUG - OTHER] PO SCH (09:00)
[2019-03-08] MEDS: AMPHETAMINE PO SCH (09:00)
[2019-03-08 09:47] LABS: Anisocytosis 1+; Blood Morphology Comment NOTED (NOT SEEN); Macrocytosis 1+; Platelet Estimate ADEQ
[2019-03-08] MEDS: DULOXETINE 30 MG CAP PO SCH (09:55)
[2019-03-08] MEDS: PREGABALIN 150 MG CAP PO SCH (09:55)
[2019-03-08] MEDS: NYSTATIN 500,000 UNIT/5 ML UDC PO SCH (09:55)
[2019-03-08] MEDS: ENSURE CLEAR 200 ML CAN PO SCH (09:56)
[2019-03-08] MEDS: TRAMADOL HCL 50 MG TAB PO PRN (10:01)
[2019-03-08 12:19] VITALS: BP 128/62; TEMP 97.6
--- NOTE | 2019-03-08 12:35 | P.DS ---
Admission Date: 03/03/19 Discharge Date: 03/08/19 Primary Care Provider: Dr. Manjarrez (we are covering) Disposition: ROUTINE DISCHARGE Discharge Condition: GOOD Reason for Admission: Right lower quadrant abdominal pain - Problems (1) Right lower quadrant abdominal pain Current Visit: Yes Status: Acute (2) Abnormal abdominal CT scan Current Visit: Yes Status: Acute (3) Neutropenia Current Visit: Yes Status: Acute Qualifiers: Neutropenia type: other drug-induced Qualified Code(s): D70.2 - Other drug- induced agranulocytosis (4) Thrombocytopenia Current Visit: Yes Status: Acute Brief History of Present Illness: This is a 59-year-old male who has been fairly healthy presented to the emergency room with complaints of right sided, lower quadrant abdominal pain. Per patient, he has had this right lower quadrant pain for the past 5 or 6 days. ADD improve slightly but since 5-6 days that has remained at the level at. He describes it as a dull achy pain which is worsened with bending and increasing abdominal pressure. He associates this pain with non-bloody diarrhea and nausea. Patient states that he has not had a bowel movement today though. He denies any fevers, chills, vomiting, recent travels, eating anything out of the ordinary, recent sick contacts. Of note, patient has recently seen a motor expert who started him on a new medication for his arthritis. He was started on Sarilumab recently. Since the pain was not getting any better, he presented to the emergency room. In the ER, blood pressure was 121/70, heart rate is 71, respirations of 18, afebrile at 97.9, satting 90% on room air with a BMI of 20.25. Labs were remarkable for a WBC count of 1, platelets of 71. CT of the abdomen showed Circumferential wall thickening of the ascending colon with adjacent inflammatory stranding. Colitis and malignancy are both considerations. Typhlitis would be a consideration if the patient has immune suppression issues. A normal appendix is identified. At the time of my exam, patient was alert oriented x3, in no acute distress, hemodynamically stable. Hospital Course: Patient was admitted, placed on reverse isolation for neutropenia. His CT found colonic wall thickening, typhlitis, colitis versus malignancy. His stool was sent for stool studies, C. diff was negative. He was started on IV antibiotics with cefepime and Flagyl, converted to Zosyn for broad spectrum coverage. He is slowly improved his diarrhea, he was able to tolerate a diet. Prior to discharge, his diarrhea had resolved and he was tolerating a GI soft diet. He did have neutropenia and thrombocytopenia. Case was discussed with Oncology. This is likely due to bone marrow suppression secondary to his medications (Sarilumab, plaquenil and methotrexate). Prior to discharge, patient was hemodynamically stable, symptom-free and tolerating a GI soft diet. He was ambulating without any concerns. White cell count and his platelet count was improving slowly. He was instructed to follow up with his primary care physician in a couple of days to follow up blood work. He was also instructed to stop those above 3 medications until he follows up with his motor expert. His diagnoses and treatment plan was explained to him, all questions were answered and he verbalized understanding. He was then discharged home in a safe and stable manner. Vital Signs/Physical Exam: Temp Pulse Resp BP Pulse Ox 97.6 F 62 16 128/62 98 03/08/19 12:00 03/08/19 12:00 03/08/19 12:00 03/08/19 12:00 03/08/19 12:00 General: Alert, In no apparent distress, Oriented x3 HEENT: Atraumatic, PERRLA, EOMI Neck: Supple, JVD not distended Respiratory: Clear to auscultation bilaterally, Normal air movement Cardiovascular: Regular rate/rhythm, Normal S1 S2 Gastrointestinal: Normal bowel sounds, No tenderness Musculoskeletal: No tenderness Integumentary: No rashes Neurological: Normal speech, Normal tone, Normal affect Lymphatics: No axilla or inguinal lymphadenopathy Laboratory Data at Discharge: WBC 2.6 K/uL (4.3-10.9) L D 03/08/19 05:41 Hgb 10.4 g/dL (13.6-17.9) L 03/08/19 05:41 Hct 29.6 % (39.6-49.0) L 03/08/19 05:41 Plt Count 100 K/uL (152-406) L 03/08/19 05:41 Sodium 144 mmol/L (136-145) 03/08/19 05:41 Potassium 3.4 mmol/L (3.5-5.1) L 03/08/19 05:41 BUN 8 mg/dL (7-18) 03/08/19 05:41 Creatinine 0.78 mg/dL (0.55-1.3) 03/08/19 05:41 Glucose 83 mg/dL (74-106) 03/08/19 05:41 Phosphorus 2.6 mg/dL (2.5-4.9) 03/04/19 03:30 Magnesium 1.9 mg/dL (1.8-2.4) 03/06/19 03:36 Total Bilirubin 0.6 mg/dL (0.2-1.0) 03/06/19 03:36 AST 57 U/L (15-37) H 03/06/19 03:36 ALT 112 U/L (12-78) H 03/06/19 03:36 Alkaline Phosphatase 41 U/L (45-117) L 03/06/19 03:36 Lipase 55 U/L (73-393) L 03/03/19 12:15 Home Medications: Aripiprazole [Abilify] 1 tab PO DAILY 03/03/19 Dextroamphetamine/Amphetamine [Dextroamp-Amphetamin 30 mg Tab] 1 tab PO BID 11/14 Duloxetine HCl [Cymbalta] 1 tab PO DAILY 03/03/19 Folic Acid 1 tab PO DAILY 03/03/19 LORazepam [Ativan*] 1 tab PO TID 03/03/19 Methocarbamol [Robaxin*] 1 tab PO TID 03/03/19 Modafinil [Provigil] 1 tab PO DAILY PRN 03/03/19 Morphine *Extended Release* [MS Contin*] 30 mg PO TID 03/03/19 Naloxegol Oxalate [Movantik] 1 tab PO DAILY 03/03/19 Pregabalin [Lyrica*] 150 mg PO TID 03/03/19 Temazepam 1 tab PO BEDTIME 03/03/19 Ciprofloxacin HCl [Cipro 500 MG Tablet] 500 mg PO BID #20 tab 03/08/19 metroNIDAZOLE [Flagyl] 500 mg PO Q8H #30 tablet 03/08/19 New Medications: Ciprofloxacin HCl [Cipro 500 MG Tablet] 500 mg PO BID #20 tab metroNIDAZOLE [Flagyl] 500 mg PO Q8H #30 tablet Patient Discharge Instructions: Please follow up with Dr. Manjarrez in 2-3 days. Please stop your Methotrexate and Plaquenil until you see your motor expert. Return to the ER for worsening symptoms. Diet: Regular Activity: Ad mary Followup: Jonatan Manjarrez MD [Primary Care Provider] - 2-3 Days (call to schedule an appointment) Time spent managing pt's care (in minutes): 55
== END 2019-03-08 13:18 | disposition home or self-care (01) | DRG 395 ==
LOC: ER 11:16 → ERHOLD 15:01 → 4TH 16:25
PROVIDERS: ADMIT Family Medicine; ATTEND Family Medicine
DX: K52.1 Toxic gastroenteritis and colitis (principal); D70.2 Other drug-induced agranulocytosis; D69.59 Other secondary thrombocytopenia; T39.4X5A Adverse effect of antirheumatics, not elsewhere classified, initial encounter; Y92.9 Unspecified place or not applicable
CPT/HCPCS: 36415; 74177; 80048; 80053; 80076; 81003; 81015; 83690; 83735; 84100; 85025; 87040; 87045; 87046; 87086; 87088; 87177; 87209; 87324; 87449; 94760; 96365; 96366; 99285; J0692; J2270; J2405; J2543; J3475; J7030; Q9967

== ENCOUNTER 2021-10-27 06:22 | Day surgery (SDC) | payer OTHER ==
--- NOTE | 2021-10-26 16:40 | RAD REPORT ---
EXAM DESCRIPTION: RAD - Chest Pa And Lat (2 Views) - 10/26/2021 4:27 pm CLINICAL HISTORY: Pre op Chest pain. COMPARISON: No comparisons FINDINGS: The lungs are mildly emphysematous but clear. The heart is normal in size. No displaced fr actures. IMPRESSION: Mild diffuse COPD.
[2021-10-26 16:45] LABS: Absolute Lymphocytes (CBC) 1.5 K/uL (0.7-4.9); Hematocrit 45.7 % (39.6-49.0); Lymphocytes % 30.1 % (15.3-44.8); MPV 8.1 fL (7.6-11.3)
[2021-10-27] MEDS ORDERED: Ringers Lactate 1,000 ML IV ONE (06:43)
[2021-10-27] MEDS ORDERED: CELECOXIB 100 MG CAPSULE PO ONE (07:00)
[2021-10-27] MEDS ORDERED: ACETAMINOPHEN 500 MG TAB PO ONE (07:00)
[2021-10-27] MEDS ORDERED: CELECOXIB 100 MG CAPSULE ONE (07:04)
[2021-10-27] MEDS ORDERED: ACETAMINOPHEN 500 MG TAB ONE (07:04)
[2021-10-27] MEDS ORDERED: FENTANYL CITR 100 MCG/2 ML ONE (07:11)
[2021-10-27] MEDS ORDERED: MIDAZOLAM HCL 2 MG/2 ML INJ ONE (07:12)
[2021-10-27] MEDS ORDERED: propofoL 200 MG/20 ML VIAL IV ONE (07:12)
[2021-10-27] MEDS ORDERED: LIDOCAINE 1% MPF 5 ML VIAL ONE (07:13)
[2021-10-27] MEDS ORDERED: ONDANSETRON 4 MG/2 ML VIAL ONE (07:13)
[2021-10-27] MEDS: CEFAZOLIN SODIUM 1 GM/VIAL ONE ×2 (07:17→07:28)
[2021-10-27] MEDS ORDERED: ROCURONIUM 50 MG/5 ML VIAL IV ONE (07:28)
[2021-10-27] MEDS ORDERED: NEOSTIGMINE 1 MG/ML -10 ML VIAL ONE (07:29)
[2021-10-27] MEDS ORDERED: GLYCOPYRROLATE 0.2 MG/ML SYR ONE ×2 (07:30→07:31)
--- NOTE | 2021-10-27 07:51 | EKG ---
Test Date: 2021-10-26 Test Time: 16:13:54 Orthotist/Prosthetist: JESSICA MEASUREMENT RESULTS: Intervals: Rate: 72 MO: 154 QRSD: 84 QT: 388 QTc: 424 [place]: P: 25 MO: 154 QRS: 37 T: 57 INTERPRETIVE STATEMENTS: Normal sinus rhythm Normal ECG No previous ECG available for comparison Electronically Signed On 10-27-21 07:50:25 CDT by Elian Young
--- NOTE | 2021-10-27 08:08 | P.BOP ---
Preoperative diagnosis: tender back and left buttock subQ mass Postoperative diagnosis: same Primary procedure: 1. Excisional biopsy of tender back subQ mass 4x3cm Secondary procedure: 2. Excisional biopsy of tender left buttock subQ mass 4x4cm Psychology Assistant: ANGELI CAMPOS (GARDENING INSTRUCTOR) Estimated blood loss: <10cc Specimen: mass x 2 Findings: see dicta Anesthesia: General Complications: None Transferred to: Recovery Room Condition: Good
[2021-10-27] MEDS ORDERED: KETOROLAC 30 MG/ML INJ ONE (09:06)
[2021-10-27 10:35] VITALS: BP 129/79; TEMP 97.1; O2SAT 96
--- NOTE | 2021-10-28 01:36 | OP ---
Date of Procedure: 10/27/2021 Surgeon: Sarkis Velasquez MD [employer] Integration Engineer: Marisa Barcenas. Preoperative Diagnosis: Tender back and left buttock subcutaneous masses. Postoperative Diagnosis: Tender back and left buttock subcutaneous masses. Procedures: 1.Excisional biopsy of tender back subcutaneous mass, 4 x 3 cm. 2.Excisional biopsy of tender left buttock subcutaneous mass, 4 x 4 cm. Estimated Blood Loss: Less than 10 cc. Specimen: Mass x2. Anesthesia: General plus local. Indications: This is the case of a male, who comes to us with 2 masses that are increasing in size w ith pain and discomfort. He wants them excised. The one on the left buttock, he says was excised be fore and then came back worse. The benefits, alternatives, and risks of excision were fully explaine d which include, but are not limited to infection, bleeding, damage to adjacent structures, anesthesi a complication, recurrence, VA, and . He also understands this may not relieve the symptoms. H e might need more than one surgical intervention. The areas of concern were marked by me and the pat ient in the holding room. Description Of Procedure: The patient was brought to the operating room, placed in supine position. Anesthesia was done without complication. A time-out was called. The patient was placed in lateral decubitus position with proper protection. The back area and the left buttock area were prepped and draped in a sterile fashion. Local anesthesia was applied followed by each case done individually, but similar in fashion, which is a wedge incision of the skin. Incision all the way down to subcutan eous tissue. The 2 masses are deep. With the one on the left buttock, we did encounter some scar ti ssue there, but we took the mass completely out. The area was irrigated and then we proceeded to kapil se this in layers with 3-0 chromic in deep layers, 3-0 chromic on the more superficial layers, and th en 3-0 nylon on the skin. Each procedure was done individually. Hemostasis was obtained at each pro cedure. Sponge count and instrument count were correct at each procedure. The patient tolerated the procedure well. The patient was sent to recovery in stable condition. SHAHIDA/JUNIOR Voice ID: [id number] Report ID: [id number]
--- NOTE | 2021-10-28 01:42 | DS ---
Date of Discharge: 10/27/2021 Discharge Diagnosis: Tender back and left buttock subcutaneous masses. Procedure: Excisional biopsy of tender back subcutaneous mass and tender left buttock mass. Disposition: Home. Activity: As tolerated. No heavy lifting. Discharge Instructions: Follow up in my office in 1 week. Call for appointment at [phone]. Keep ar ea dry for 48 hours, then may shower and then may apply triple antibiotics and dressings over the are a. SHAHIDA/JUNIOR Voice ID: [id number] Report ID: [id number]
== END 2021-10-27 09:46 | disposition home or self-care (01) ==
LOC: OR 06:22
PROVIDERS: ATTEND Surgery
PROC: 0JB70ZZ Excision of Back Subcutaneous Tissue and Fascia, Open Approach (ICD-10-PCS; principal; 2021-10-27 07:30)
PROC: 0JB90ZZ Excision of Buttock Subcutaneous Tissue and Fascia, Open Approach (ICD-10-PCS; 2021-10-27 07:30)
DX: L72.0 Epidermal cyst (principal); Z20.822 Contact with and (suspected) exposure to COVID-19; F41.8 Other specified anxiety disorders; J45.909 Unspecified asthma, uncomplicated; M06.9 Rheumatoid arthritis, unspecified
CPT/HCPCS: 36415; 71046; 80048; 85025; 88304; 93005; J0690; J2250; J2405; J2704; J2710; J3010; J7120; U0003